=== PATIENT | female | born 1945 | race Caucasian/White ===

== ENCOUNTER 2016-11-15 13:16 | Outpatient (CLI) | payer MEDICARE | END 2016-11-15 13:17 | disposition home or self-care (01) | DX: Z12.31 Encounter for screening mammogram for malignant neoplasm of breast (principal) ==

== ENCOUNTER 2016-11-28 11:37 | Emergency (ER) | payer MEDICARE ==
[2016-11-28] MEDS ORDERED: SODIUM CHLORIDE 0.9% 1,000 ML IV ONE (12:09)
[2016-11-28] MEDS ORDERED: ceFAZolin 2 GM/50 ML 50 ML IV SCH (12:15)
[2016-11-28] MEDS ORDERED: ceFAZolin 2 GM/50 ML 50 ML IV ONE (12:25)
[2016-11-28] MEDS ORDERED: oxyCOD/ACETAMIN 5 MG/325 MG TABLET PO STA (15:33)
[2016-11-28] MEDS ORDERED: DICYCLOMINE 10 MG CAPSULE PO STA (15:33)
[2016-11-28] MEDS ORDERED: DICYCLOMINE 10 MG CAPSULE PO ONE (15:36)
[2016-11-28] MEDS ORDERED: oxyCOD/ACETAMIN 5 MG/325 MG TABLET PO ONE (15:36)
== END 2016-11-28 15:52 | disposition home or self-care (01) ==
DX: R10.31 Right lower quadrant pain (principal); I10 Essential (primary) hypertension; K21.9 Gastro-esophageal reflux disease without esophagitis; J44.9 Chronic obstructive pulmonary disease, unspecified
CPT/HCPCS: 36415; 74176; 80053; 81003; 83690; 85025; 99283; 99284; A9270; J0690

== ENCOUNTER 2017-07-18 09:35 | Outpatient (CLI) | payer MEDICARE ==
--- NOTE | 2017-07-18 10:56 | XRAY Report ---
TWO-VIEW CHEST: 07/18/2017 CLINICAL INDICATION: Fall, pain. FINDINGS: Frontal and lateral views of the chest demonstrate a normal cardiac silhouette. The lungs are clear. No effusion or pneumothorax is present. There is likely a minimally displaced posterior left 8th rib fracture. IMPRESSION: LIKELY MINIMALLY DISPLACED 8TH RIB FRACTURE. NO EVIDENCE OF ACUTE CARDIOPULMONARY DISEA SE. :9 JOB #: [id number] EXT JOB #:[id number]
== END 2017-07-18 09:36 | disposition home or self-care (01) ==
LOC: DI.S 09:35
PROVIDERS: ATTEND Nurse Practitioner Family
DX: R07.81 Pleurodynia (principal)
CPT/HCPCS: 71020

== ENCOUNTER 2018-05-17 13:07 | Outpatient (CLI) | payer MEDICARE ==
[2018-05-17] MEDS ORDERED: ALBUTEROL NEB 2.5 MG/3 ML INH ONE (15:00)
--- NOTE | 2018-05-17 16:45 | XRAY Report ---
Reason: DYSPNEA ON EXERTION, FATIGUE Procedure Date: 05/17/2018 Accession Number: [id number] / [id number] Procedure: XR - Chest 2 View X-Ray CPT Code: 86186 FULL RESULT: EXAM: CHEST RADIOGRAPHY EXAM DATE: 05/17/2018 03:14 PM. CLINICAL HISTORY: Dyspnea on exertion, fatigue. COMPARISON: Chest 2 view PA/lateral 07/18/2017 9:48 AM. TECHNIQUE: 2 views. FINDINGS: Lungs/Pleura: No focal opacities evident. No pleural effusion. No pneumothorax. Normal volumes. Mediastinum: Heart and mediastinal contours are unremarkable. Other: Healed rib fractures of the seventh, eighth and ninth left ribs. Please note that these were not universally well seen on the previous chest radiograph, difficult to detect. IMPRESSION: Interval healing of rib fractures. No acute cardiopulmonary abnormality. RADIA
== END 2018-05-17 13:08 | disposition home or self-care (01) ==
LOC: RT 13:07 → DI 13:08
PROVIDERS: ATTEND Nurse Practitioner Family
DX: R06.00 Dyspnea, unspecified (principal); R53.83 Other fatigue; Z87.81 Personal history of (healed) traumatic fracture
CPT/HCPCS: 71046; 94060

== ENCOUNTER 2019-02-04 13:13 | Outpatient (CLI) | payer MEDICARE ==
--- NOTE | 2019-02-05 15:02 | CT Report ---
Reason: CHRONIC SINUSITIS,UNSPECIFIED Procedure Date: 02/04/2019 Accession Number: [id number] / [id number] Procedure: CT - Sinuses CPT Code: FULL RESULT: EXAM: CT SINUS EXAM DATE: 02/04/2019 01:28 PM. HISTORY: Chronic sinusitis, unspecified. COMPARISONS: None. TECHNIQUE: Routine multi-axial CT imaging performed through the sinuses. Iodinated IV contrast: None. Reconstructions: Multiplanar reformats. In accordance with CT protocol optimization, one or more of the following dose reduction techniques were utilized for this exam: automated exposure control, adjustment of mA and/or KV based on patient size, or use of iterative reconstructive technique. FINDINGS: RIGHT Frontal: Normal. Ethmoid: Minimal mucoperiosteal thickening. Maxillary: Normal. Sphenoid: Normal. Drainage Pathways: The frontal recess, ostiomeatal complex and sphenoethmoidal recess are patent with mild mucoperiosteal thickening along the right ostiomeatal unit with a patent but narrow passage. LEFT Frontal: Normal. Ethmoid: Minimal mucoperiosteal thickening. Maxillary: Normal. Sphenoid: Normal. Drainage Pathways: The frontal recess, ostiomeatal complex and sphenoethmoidal recess are patent and normal. Nasal Cavity: Normal. No mass or significant anatomic abnormality evident. Osseous Structures: Mild demineralization of osseous structures in the nasal cavity and ethmoid cell regions. Orbits: Unremarkable. Other: None. IMPRESSION: Mild chronic changes as described. RADIA
== END 2019-02-04 13:14 | disposition home or self-care (01) ==
LOC: DI 13:13
PROVIDERS: ATTEND Physician Assistant
DX: J32.9 Chronic sinusitis, unspecified (principal)
CPT/HCPCS: 70486

== ENCOUNTER 2019-04-02 12:50 | Outpatient (CLI) | payer MEDICARE ==
[~2019-04-02 12:50] MED LIST: ALBUTEROL NEB 2.5 MG/3 ML INH SCH
== END 2019-04-02 12:51 | disposition home or self-care (01) ==
LOC: RT 12:50
PROVIDERS: ATTEND Student in an Organized Health Care Education/Training Program
DX: J44.9 Chronic obstructive pulmonary disease, unspecified (principal)
CPT/HCPCS: 94010; 94729

== ENCOUNTER 2019-05-07 09:37 | Outpatient (CLI) | payer MEDICARE ==
--- NOTE | 2019-05-08 18:45 | XRAY Report ---
Reason: PAIN OF LEFT SHOULDER, KNEE FOOT Procedure Date: 05/07/2019 Accession Number: [id number] / [id number] Procedure: XRS - Foot 3 View LT CPT Code: FULL RESULT: EXAM: LEFT FOOT RADIOGRAPHY EXAM DATE: 05/07/2019 10:08 AM. CLINICAL HISTORY: Chronic left foot pain, particularly along the medial arch COMPARISON: KNEE 3 VIEW LT 05/07/2019 10:16 AM. TECHNIQUE: 3 views. FINDINGS: Bones: No fractures. Os peroneum present. Joints: Some osteophytes at the first metatarsal phalangeal joint with some mild joint space narrowing and subchondral sclerosis base of the first proximal phalanx. No dislocations. Soft Tissues: Normal. No soft tissue swelling. 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 No fractures. RADIA
--- NOTE | 2019-05-08 19:17 | XRAY Report ---
Reason: PAIN OF LEFT SHOULDER, KNEE FOOT Procedure Date: 05/07/2019 Accession Number: [id number] / [id number] Procedure: XRS - Knee 3 View LT CPT Code: FULL RESULT: EXAM: LEFT KNEE RADIOGRAPHY EXAM DATE: 05/07/2019 10:08 AM. CLINICAL HISTORY: Chronic left knee pain COMPARISON: 12/24/2014 3:13 PM. TECHNIQUE: 3 views. FINDINGS: Bones: Spurring along the lateral compartment, involving the tibial plateau and lateral femoral condyle. Progressed since December 2014. No fractures. Minor spurring of the patella. Joints: Normal. No effusion. No subluxations. Soft Tissues: Normal. No soft tissue swelling. IMPRESSION: Some degenerative joint disease, greatest along the lateral compartment, worse compared to 2014. No acute abnormality. RADIA
--- NOTE | 2019-05-08 19:19 | XRAY Report ---
Reason: PAIN OF LEFT SHOULDER, KNEE FOOT Procedure Date: 05/07/2019 Accession Number: [id number] / [id number] Procedure: XRS - Shoulder 3 View LT CPT Code: FULL RESULT: EXAM: LEFT SHOULDER RADIOGRAPHY EXAM DATE: 05/07/2019 10:08 AM. CLINICAL HISTORY: PAIN OF LEFT SHOULDER, KNEE FOOT. COMPARISON: None. TECHNIQUE: 3 views. FINDINGS: Bones: Normal. No acute fracture or bone lesion. Old left rib fractures. Joints: Acromioclavicular joint is normal. There is mild glenohumeral joint space loss and some bony spurring along the humeral head at the inferior aspect of the articular surface. Soft tissues: Calcifications along the rotator cuff tendons. IMPRESSION: 1. Some calcifications along the rotator cuff tendons with tendinopathy. 2. Mild glenohumeral joint space narrowing. RADIA
== END 2019-05-07 09:38 | disposition home or self-care (01) ==
LOC: DI.S 09:37
PROVIDERS: ATTEND Physician Assistant
DX: M65.812 Other synovitis and tenosynovitis, left shoulder (principal); M19.012 Primary osteoarthritis, left shoulder; M17.12 Unilateral primary osteoarthritis, left knee; M19.072 Primary osteoarthritis, left ankle and foot

== ENCOUNTER 2019-05-16 15:58 | Emergency (ER) | payer MEDICARE ==
[2019-05-16 17:03] LABS: BASOPHILS # (AUTO) 0.1 10^3/uL (0.0-0.1); BASOPHILS % (AUTO) 0.4 %; EOSINOPHILS # (AUTO) 0.2 10^3/uL (0.0-0.7); EOSINOPHILS % (AUTO) 1.7 %; HGB - HEMOGLOBIN 12.7 g/dL (12.0-16.0); LYMPHOCYTES # (AUTO) 1.8 10^3/uL (1.5-3.5); LYMPHOCYTES % (AUTO) 13.6 %; MEAN CORPUSCULAR HEMOGLOBIN 30.3 pg (27.0-31.0); MEAN CORPUSCULAR HGB CONC 32.2 g/dL (32.0-36.0); MONOCYTES # (AUTO) 0.8 10^3/uL (0.0-1.0); MONOCYTES % (AUTO) 6.2 %; NEUTROPHILS # (AUTO) 10.3 10^3/uL (1.5-6.6); NEUTROPHILS % (AUTO) 77.4 %; PLT - PLATELET COUNT 309 10^3/uL (130-450); RED BLOOD COUNT 4.19 10^6/uL (4.20-5.40); RED CELL DISTRIBUTION WIDTH 13.9 % (12.0-15.0); WHITE BLOOD COUNT 13.3 x10^3/uL (4.8-10.8)
--- NOTE | 2019-05-16 17:12 | XRAY Report ---
Reason: SOB Procedure Date: 05/16/2019 Accession Number: [id number] / [id number] Procedure: XR - Chest 1 View X-Ray CPT Code: 74496 FULL RESULT: EXAM: CHEST RADIOGRAPHY EXAM DATE: 05/16/2019 04:35 PM. CLINICAL HISTORY: SOB. COMPARISON: SHOULDER 3 VIEW LT 05/07/2019 10:00 AM CHEST 2 VIEW 05/17/2018 3:14 PM. TECHNIQUE: 1 view. FINDINGS: Lungs/Pleura: No acute or focal airspace disease. Lung volumes are normal. No edema or pneumothorax. Mediastinum: Heart size is normal. There is mild aortic tortuosity. Other: There are old fractures of the posterior left seventh and eighth ribs. IMPRESSION: Negative for an acute cardiopulmonary abnormality RADIA
[2019-05-16 17:16] LABS: ALBUMIN 3.9 g/dL (3.2-5.5); ALBUMIN/GLOBULIN RATIO 1.1 (1.0-2.2); BILIRUBIN,TOTAL 0.6 mg/dL (0.2-1.0); CALCIUM 9.3 mg/dL (8.5-10.3); CREATININE 0.8 mg/dL (0.4-1.0); TOTAL PROTEIN 7.5 g/dL (6.7-8.2)
[2019-05-16 17:45] VITALS: BP 139/77
--- NOTE | 2019-05-16 17:56 | ED Physician Documentation ---
PD HPI CHEST PAIN - Stated complaint Stated Complaint: SOA,HIGH BP - Chief complaint Chief Complaint: Cardiac - History obtained from History obtained from: Patient - History of Present Illness Timing - onset: Today (She went over to pulmonary rehab today for her first visit for her COPD. Her blood pressure was in the range of 180/100 there so they sent her here for further evaluation and treatment. She feels fine, her breathing is not worse than any other day, she has not had any chest pains. She always has mild pedal edema and its not worse than normal.) Review of Systems Constitutional: denies: Fever, Fatigue Cardiac: denies: Chest pain / pressure, Palpitations, Calf pain Respiratory: denies: Cough GI: denies: Abdominal Pain PD PAST MEDICAL HISTORY - Past Medical History Cardiovascular: Hypertension Respiratory: COPD Endocrine/Autoimmune: None GI: GERD : None HEENT: None Psych: None Musculoskeletal: None Derm: Other - Past Surgical History General: Cholecystectomy, Colonoscopy Ortho: Carpal Tunnel surgery /ALARM SERVICE TECHNICIAN: Hysterectomy HEENT: Cataracts - Present Medications Home Medications: Ambulatory Orders Medication Instructions Recorded Confirmed Albuterol [Ventolin Hfa] 2 puffs INH QID 12/27/12 11/28/16 Beclomethasone 80 Mcg [Qvar 80] 2 puffs INH QID 12/27/12 11/28/16 Hydrochlorothiazide 25 mg PO DAILY 12/27/12 11/28/16 Lisinopril [Prinivil] 5 mg PO DAILY 12/27/12 11/28/16 Omeprazole [PriLOSEC] 20 mg PO DAILY 12/27/12 11/28/16 Fluticasone [Flonase] 1 sprays TROY BID 07/09/15 11/28/16 Tiotropium [place] [Spiriva 4 gm IH DAILY 10/01/15 11/28/16 Respimat] Dicyclomine [Bentyl] 10 mg PO Q8H PRN #20 capsule 11/28/16 - Allergies Allergies/Adverse Reactions: Allergies Allergy/AdvReac Type Severity Reaction Status Date / Time Sulfa (Sulfonamide Allergy Itching Verified 05/16/19 16:11 Antibiotics) - Social History Does the pt smoke?: No Smoking Status: Never smoker Does the pt drink ETOH?: No Does the pt have substance abuse?: No PD ED PE NORMAL - Vitals Vital signs reviewed: Yes - General General: Alert and oriented X 3, No acute distress - HEENT HEENT: PERRL, EOMI - Neck Neck: Supple, no meningeal sign, No bony TTP - Cardiac Cardiac: RRR, No murmur - Respiratory Respiratory: No respiratory distress, Clear bilaterally - Abdomen Abdomen: Non tender - Derm Derm: Normal color - Extremities Extremities: Other (Trace bilateral pitting pedal edema) - Neuro Neuro: Alert and oriented X 3, Normal speech Results - Vitals Vitals: Vital Signs - 24 hr 05/16/19 05/16/19 16:11 17:44 Temperature 36.8 C 36.8 C Heart Rate 119 H 103 H Respiratory 20 17 Rate Blood Pressure 144/87 H 139/77 H O2 Saturation 96 99 Oxygen O2 Source Room air - EKG (time done) 1625 Rate: Rate (enter#) (114) Rhythm: Sinus tachycardia [place]: Normal Intervals: Normal ID QRS: Normal Ischemia: Normal ST segments Computer interpretation: Agree with computer - Labs Labs: Laboratory Tests 05/16/19 05/16/19 16:51 16:51 WBC 13.3 H RBC 4.19 L Hgb 12.7 Hct 39.4 MCV 94.0 MCH 30.3 MCHC 32.2 RDW 13.9 Plt Count 309 MPV 10.0 Neut # (Auto) 10.3 H Lymph # (Auto) 1.8 Wise # (Auto) 0.8 Eos # (Auto) 0.2 Baso # (Auto) 0.1 Absolute Nucleated RBC 0.00 Nucleated RBC % 0.0 Sodium 132 L Potassium 3.6 Chloride 92 L Carbon Dioxide 31 Anion Gap 9.0 BUN 20 Creatinine 0.8 Estimated GFR (MDRD) 70 L Glucose 99 Calcium 9.3 Total Bilirubin 0.6 AST 18 ALT 16 Alkaline Phosphatase 58 Total Protein 7.5 Albumin 3.9 Globulin 3.6 Albumin/Globulin Ratio 1.1 Lipase 28 PD MEDICAL DECISION MAKING - ED course ED course: On my evaluation her heart rate is about 103, her blood pressure is 139/77 and she feels fine, we agreed that it was fine to follow-up with her physician for further evaluation and treatment given that she is asymptomatic. Departure - Departure Disposition: 01 Home, Self Care Clinical Impression: Hypertension Qualifiers: Hypertension type: essential hypertension Qualified Code(s): I10 - Essential (primary) hypertension Condition: Good Record reviewed to determine appropriate education?: Yes Instructions: ED HTN Established Comments: Follow-up with Breanna next week for a blood pressure check, return for new or worsening symptoms.
== END 2019-05-16 18:13 | disposition home or self-care (01) ==
LOC: ED 15:58
DX: I10 Essential (primary) hypertension (principal); R00.0 Tachycardia, unspecified; J44.9 Chronic obstructive pulmonary disease, unspecified
CPT/HCPCS: 36415; 71045; 80053; 83690; 85025; 93005; 99283; 99284

== ENCOUNTER 2021-11-26 14:43 | Outpatient (CLI) | payer MEDICARE ==
--- NOTE | 2021-11-26 16:34 | DEXA Report ---
PROCEDURE: Dexa Spine and/or Hip INDICATIONS: POSTMENOPAUSAL TECHNIQUE: Dual energy x-ray absorptiometry (DXA) was performed on a CoAlign System. Regions measur ed are the AP Spine, femoral neck, and if needed forearm. COMPARISON: None. FINDINGS: Lumbar Spine: Bone Mineral Density 1.098 g/cm/cm,T score -0.7, normal Left Hip: Bone Mineral Density 0.891 g/cm/cm,T score -0.9, normal Left Femoral Neck: Bone Mineral Density 0.802 g/cm/cm, T score -1.7, osteopenia (T score greater or equal to -1.0: NORMAL) (T score from -1.1 to -2.4: OSTEOPENIA) (T score less than or equal to -2.5 to: OSTEOPOROSIS) Impression: Bone mineral density at the lower limits of normal in the lumbar spine and left hip, and in the osteo penic range at the left femoral neck. Patients with diagnosis of osteoporosis or osteopenia should have regular bone mineral density assess ment. For those eligible for Medicare, routine testing is allowed once every 2 years. Testing frequ ency can be increased for patients who have rapidly progressing disease or for those who are receivin g medical therapy to restore bone mass. Reviewed by: Wilver Tracey MD on 11/26/2021 4:33 PM PDT Approved by: Wilver Tracey MD on 11/26/2021 4:33 PM PDT Station ID: [id number]
== END 2021-11-26 14:44 | disposition home or self-care (01) ==
LOC: DI 14:43
PROVIDERS: ATTEND Nurse Practitioner Family
DX: M85.88 Other specified disorders of bone density and structure, other site (principal); Z78.0 Asymptomatic menopausal state

== ENCOUNTER 2022-02-10 08:00 | Outpatient (CLI) | payer MEDICARE ==
--- NOTE | 2022-02-11 13:56 | XRAY Report ---
PROCEDURE: Ankle 3 View LT INDICATIONS: LEFT ANKLE PAIN TECHNIQUE: 3 views of the ankle were acquired. COMPARISON: None FINDINGS: Bones: Mildly displaced lateral malleolus fracture of the distal left fibula. Moderate overlying soft tissue swelling. Ankle mortise appears intact. No suspicious bony lesions. Soft tissues: No tibiotalar joint effusion. Achilles tendon appears normal. IMPRESSION: Mildly displaced lateral malleolar fracture. Reviewed by: Daniel Lunsford MD on 02/11/2022 1:55 PM PDT Approved by: Daniel Lunsford MD on 02/11/2022 1:55 PM PDT Station ID: [id number]
== END 2022-02-10 23:59 | disposition home or self-care (01) ==
LOC: DI.S 08:00
PROVIDERS: ATTEND Registered Nurse
DX: S82.62XA Displaced fracture of lateral malleolus of left fibula, initial encounter for closed fracture (principal)

== ENCOUNTER 2022-02-10 15:23 | Outpatient (CLI) | payer MEDICARE | END 2022-02-10 15:24 | disposition EMS.NT | LOC: EMS 15:23 | DX: S99.912A Unspecified injury of left ankle, initial encounter (principal); X50.1XXA Overexertion from prolonged static or awkward postures, initial encounter; Y93.01 Activity, walking, marching and hiking; Y92.480 Sidewalk as the place of occurrence of the external cause ==

== ENCOUNTER 2022-02-16 14:58 | Outpatient (CLI) | payer MEDICARE | END 2022-02-16 14:59 | disposition EMS.NT | LOC: EMS 14:58 | DX: Z53.9 Procedure and treatment not carried out, unspecified reason (principal) ==

== ENCOUNTER 2022-02-25 08:00 | Outpatient (CLI) | payer MEDICARE ==
--- NOTE | 2022-02-25 17:03 | XRAY Report ---
PROCEDURE: Ankle 3 View LT INDICATIONS: ANKLE FX TECHNIQUE: 3 views of the ankle were acquired. COMPARISON: 02/10/2022 FINDINGS: Bones: Nondisplaced lateral malleolus fracture is stable in appearance. Soft tissues: No tibiotalar joint effusion. Achilles tendon appears normal. Soft tissue swelling. IMPRESSION: Stable mildly displaced lateral malleolus fracture. Reviewed by: Yovana Guzman MD, PhD on 02/25/2022 5:02 PM PDT Approved by: Yovana Guzman MD, PhD on 02/25/2022 5:02 PM PDT Station ID: [id number]
== END 2022-02-25 23:59 | disposition home or self-care (01) ==
LOC: DI.WOS 08:00
PROVIDERS: ATTEND Physician Assistant
DX: S82.62XA Displaced fracture of lateral malleolus of left fibula, initial encounter for closed fracture (principal)

== ENCOUNTER 2022-03-15 14:00 | Outpatient (CLI) | payer MEDICARE ==
--- NOTE | 2022-03-15 15:55 | XRAY Report ---
PROCEDURE: Ankle 3 View LT INDICATIONS: ANKLE FX TECHNIQUE: 3 views of the ankle were acquired. COMPARISON: 02/25/2022 FINDINGS: Bones: Mildly displaced Nelson B lateral malleolus fracture shows appropriate interval healing. Soft tissues: No tibiotalar joint effusion. Achilles tendon appears normal. Soft tissue swelling p ersists. IMPRESSION: Nelson B lateral malleolus fracture shows appropriate interval healing. Stable mild displ acement. Reviewed by: Kb Krause MD on 03/15/2022 3:54 PM PDT Approved by: Kb Krause MD on 03/15/2022 3:54 PM PDT Station ID: [id number]
== END 2022-03-15 23:59 | disposition home or self-care (01) ==
LOC: DI.WOS 14:00
PROVIDERS: ATTEND Physician Assistant
DX: S82.62XD Displaced fracture of lateral malleolus of left fibula, subsequent encounter for closed fracture with routine healing (principal)

== ENCOUNTER 2023-06-30 14:12 | Outpatient (CLI) | payer MEDICARE ==
--- NOTE | 2023-07-01 09:03 | XRAY Report ---
PROCEDURE: Knee 3 View BILAT INDICATIONS: PAIN TO BOTH KNEES TECHNIQUE: 3 views of each knee(s) were acquired. COMPARISON: X-ray left knee, . FINDINGS: Right: Gemu valgum. No fractures or dislocations. No suspicious bony lesions. Gemu valgum. Moderate tricompartmental knee joint degeneration. Moderate joint space narrowing with weightbearing in the l ateral femorotibial compartment. Moderate knee joint effusion. No suspicious soft tissue calcificati ons or masses. Left: Gemu valgum. No fractures or dislocations. No suspicious bony lesions. Mild tricompartmental knee joint degeneration. Mild joint space narrowing with weightbearing. Trace knee joint effusion. No suspicious soft tissue calcifications or masses. IMPRESSION: 1. Genu valgum. 2. Degenerative joint disease bilaterally, moderate in right knee and mild in left knee. Reviewed by: Latesha Angel MD on 07/01/2023 9:01 AM PST Approved by: Latesha Angel MD on 07/01/2023 9:01 AM PST Station ID: [id number]
== END 2023-06-30 14:13 | disposition home or self-care (01) ==
LOC: DI.S 14:12
PROVIDERS: ATTEND Nurse Practitioner Family
DX: M17.0 Bilateral primary osteoarthritis of knee (principal); M21.062 Valgus deformity, not elsewhere classified, left knee; M21.061 Valgus deformity, not elsewhere classified, right knee

== ENCOUNTER 2024-02-17 07:00 | Outpatient (CLI) | payer MEDICARE ==
--- NOTE | 2024-02-18 06:58 | XRAY Report ---
PROCEDURE: Hand 3+V LT INDICATIONS: LEFT HAND PAIN TECHNIQUE: 3 views of the hand(s) acquired. COMPARISON: None. FINDINGS: Bones: There is an intra-articular fracture at the base of the proximal first phalanx. Contracture o f the second interphalangeal joints. Interphalangeal joint space narrowing. Soft tissues: No suspicious soft tissue calcifications or masses. IMPRESSION: Intra-articular fracture at the base of the proximal first phalanx. Reviewed by: Brock Cody MD on 02/18/2024 6:57 AM PDT Approved by: Brock Cody MD on 02/18/2024 6:57 AM PDT Station ID: [id number]
--- NOTE | 2024-02-18 06:59 | XRAY Report ---
PROCEDURE: Wrist 3+V LT INDICATIONS: LEFT HAND PAIN TECHNIQUE: 3 views of the wrist were acquired. COMPARISON: None. FINDINGS: Bones: No fractures or dislocations. No suspicious bony lesions. Soft tissues: No suspicious soft tissue calcifications or masses. IMPRESSION: No acute bony abnormality of the wrist. Please see same-day hand series for further discussion. Reviewed by: Brock Cody MD on 02/18/2024 6:58 AM PDT Approved by: Brock Cody MD on 02/18/2024 6:58 AM PDT Station ID: [id number]
== END 2024-02-17 23:59 | disposition home or self-care (01) ==
LOC: DI.S 07:00
PROVIDERS: ATTEND Registered Nurse
DX: S62.512A Displaced fracture of proximal phalanx of left thumb, initial encounter for closed fracture (principal); M25.532 Pain in left wrist

== ENCOUNTER 2024-03-03 11:48 | Outpatient (CLI) | payer MEDICARE ==
--- NOTE | 2024-03-03 21:46 | XRAY Report ---
PROCEDURE: Finger(s) LT INDICATIONS: NONDISPLACED FRACTURE OF PROXIMAL PHALANX OF LEFT TECHNIQUE: AP hand, 3 views of the first finger(s) acquired. COMPARISON: Left hand radiograph dated 02/17/2024. FINDINGS: Bones: Again noted is slightly comminuted intra-articular fracture involving first proximal phalange al base with volar displacement of fractured fragment unchanged from prior study. No new fracture or dislocation. No suspicious bony lesions. Soft tissues: No suspicious soft tissue calcifications or masses. IMPRESSION: Stable appearance of slightly comminuted and displaced intra-articular fracture involving first proxi mal phalangeal base. Reviewed by: Flex Lo MD on 03/03/2024 9:45 PM PDT Approved by: Flex Lo MD on 03/03/2024 9:45 PM PDT Station ID: [id number]
== END 2024-03-03 11:49 | disposition home or self-care (01) ==
LOC: DI 11:48
PROVIDERS: ATTEND Orthopaedic Surgery
DX: S62.512A Displaced fracture of proximal phalanx of left thumb, initial encounter for closed fracture (principal)

== ENCOUNTER 2025-08-05 18:20 | Observation (INO) ==
--- NOTE | 2025-08-05 18:33 | ED Physician Documentation ---
History of Present Illness Stated complaint Stated Complaint: GLF L Wrist Chief complaint Chief Complaint: General History obtained from History obtained from: Patient History of Present Illness Timing: Prior to arrival Additonal information Additional information: Patient is a 79-year-old female presenting to the emergency department after a fall yesterday. She was on the ground and unable to get up. She was having persistent pain to her left wrist it was not until one of her neighbors came to check on her today when she was able to be assisted up. She attempted to go to the walk-in clinic but became very lightheaded.Patient was on the ground for approximately 16 hours Meds/Allgy Home Medications Ambulatory Orders Medication Instructions Recorded Confirmed albuterol sulfate 90 mcg/actuation 2 puff inhalation Q ID 12/27/12 08/05/25 aerosol inhaler (Ventolin HFA) hydrochlorothiazide 25 mg tablet 25 mg PO DAILY 08/05/25 lisinopril 5 mg tablet (Prinivil) 5 mg PO DAILY 08/05/25 omeprazole 20 mg capsule,delayed 20 mg PO DAILY 08/05/25 release tiotropium bromide 2.5 4 g IH DAILY 10/01/15 mcg/actuation mist for inhalation (Spiriva Respimat) Allergies Allergies Allergy/AdvReac Type Severity Reaction Status Date / Time Sulfa (Sulfonamide Allergy Itching Verified 08/05/25 18:27 Antibiotics) PFSH Active Problems All Active Problems (Updated 08/05/25 @ 22:17 by Lidia Naranjo PA-C) Pain and swelling of left wrist (Acute) Closed left radial fracture (Acute) Hyponatremia (Acute) Dehydration (Acute) Urinary tract infection (Acute) Fall (Acute) Rib pain (Acute) Skin tear (Acute) Elevated blood pressure reading (Acute) Hypertension (Acute) Abdominal pain (Acute) Medical History Medical History (Updated 08/05/25 @ 22:17 by Lidia Naranjo PA-C) Wrist injury GERD (gastroesophageal reflux disease) COPD (chronic obstructive pulmonary disease) Surgical History Surgical History (Updated 08/05/25 @ 19:22 by Isidro Clemons RN) Hx of cholecystectomy Social History Social History (Updated 08/05/25 @ 19:25 by Isidro Clemons RN) Smoking Status: Former smoker If you are a former smoker, when did you quit? (Date/Year): 20 years ago How many cigarettes a day do you smoke? (20 cigarettes=1 Pk): 20 Do you dip or chew tobacco?: No Living arrangement: At home Marital Status: Single Living Condition: Alone Support Person: Yes Relationship Notes: 2 sister live close to her; lives in an area where there are people around Has a Durable Power of Meter Readers Supervisor for Health Care?: No Has Health Care Directive?: No Home Mobility Equipment: Cane Physical - Functional Details: COPD limits mobility to 15 steps before stopping to rest Do you feel safe in your home environment?: Yes History of physical, verbal, emotional, or financial abuse?: No ETOH Use: Wine Frequency: Weekly Number of days/week: 2 Retired: Yes Optional: worked in the [employer] industry x 30 years Are you following a diet prescribed by a doctor: No Are you following a special diet: No Exam Exam Vital Signs: Vital Signs x48h Temp Pulse Resp BP Pulse Ox 08/05/25 18:27 36.8 C 101 H 18 170/96 H 97 Constitutional normal general appearance HENMT normocephalic, head/scalp atraumatic and hearing grossly normal bilaterally Eyes PERRL, EOMs intact bilaterally and conjunctivae normal Neck/C-Spine visual inspection normal Lymph no lymphadenopathy noted Chest inspection of chest normal No reproducible chest pain Respiratory breath sounds equal bilaterally and normal respiratory effort Cardiovascular normal heart rate noted, regular rhythm noted and no gallop Gastrointestinal abdomen nontender, no abnormal bruising, no pelvic instability Back/Pelvis No reproducible lumbar or thoracic tenderness. Extremities Obvious deformity to the left wrist with obvious bruising and swellinga nd signficant tenderness to light tough, with, abduction of left wrist and decreased flexion on exam. Trigger finger with flexion to left index finger on examination. Radial pulse 2+ baseline tremor in place, left thumb with obvious deformity capillary refill intact sensation intact. Skin skin color normal Ecchymosis noted to bilateral lower legs but no significant pain on palpation or obvious deformity flexion extension intact patient has good strength of bilateral lower legs Results Vitals Vitals: Vital Signs - 24 hr 08/05/25 18:27 08/05/25 19:56 08/05/25 19:56 Temperature 36.8 C Temperature Source Temporal Artery Scan Pulse Rate 101 H Respiratory Rate 18 Blood Pressure 170/96 H O2 Saturation 97 O2 Source Room air Pain Intensity 6 6 6 Oxygen O2 Source Room air Labs Labs: Laboratory Tests 08/05/25 08/05/25 18:45 20:03 WBC 14.2 H RBC 4.01 L Hgb 14.2 Hct 41.5 MCV 103.5 H MCH 35.4 H MCHC 34.2 RDW 15.9 H Plt Count 287 MPV 9.7 Neut # (Auto) 12.5 H Lymph # (Auto) 0.8 L [place] # (Auto) 0.7 Eos # (Auto) 0.0 Baso # (Auto) 0.0 Absolute Nucleated RBC 0.00 Nucleated RBC % 0.0 Sodium 130 L Potassium 4.1 Chloride 89 L Carbon Dioxide 25 Anion Gap 16.0 H BUN 17 Creatinine 0.8 Estimated GFR (MDRD) 69 L Glucose 79 Calcium 9.7 Total Bilirubin 0.7 AST 31 ALT 14 Alkaline Phosphatase 77 Total Creatine Kinase 419 H Total Protein 7.4 Albumin 4.5 Globulin 2.9 Albumin/Globulin Ratio 1.6 Lipase < 10 L Urine Color Yellow Urine Clarity Clear Urine pH 5.0 Ur Specific [place] >=1.030 H Urine Protein Negative Urine Glucose (UA) Negative Urine Ketones 80 Urine Occult Blood Negative Urine Nitrite Negative Urine Bilirubin Small Urine Urobilinogen 0.2 (NORMAL) Ur Leukocyte Esterase Trace Urine RBC None Seen Urine WBC 0-3 Ur Epithelial Cells RARE Renal Tubular Ur Squamous Epith Cells FEW Squamous Urine Bacteria Few Ur Microscopic Review INDICATED Urine Culture Comments INDICATED Nasal Adenovirus (PCR) NOT DETECTED Nasal B. parapertussis DNA (PCR) NOT DETECTED Nasal Coronavir 229E PCR NOT DETECTED Nasal Coronavir HKU1 PCR NOT DETECTED Nasal Coronavir NL63 PCR NOT DETECTED Nasal Coronavir OC43 PCR NOT DETECTED Nasal Enterovir/Rhinovir PCR NOT DETECTED Nasal Influenza B PCR NOT DETECTED Nasal Influenza A PCR NOT DETECTED Nasal Parainfluen 1 PCR NOT DETECTED Nasal Parainfluen 2 PCR NOT DETECTED Nasal Parainfluen 3 PCR NOT DETECTED Nasal Parainfluen 4 PCR NOT DETECTED Nasal RSV (PCR) NOT DETECTED Nasal B.pertussis DNA PCR NOT DETECTED Nasal C.pneumoniae (PCR) NOT DETECTED Gilbert Human Metapneumo PCR NOT DETECTED Nasal M.pneumoniae (PCR) NOT DETECTED Nasal SARS-CoV-2 (PCR) NOT DETECTED PD Medical Decision Making ED course Complexity details: reviewed old records and reviewed results ED course: Patient is a 79 yo female presenting to the ED presenting to the emergency department with fall at home that occurred yesterday after she tripped over her cat. She is unsure if she hit her head but she was calling around for 16 hours last night unable to get up. Her neighbor checked on her this evening and tried to bring her to the walk-in clinic but she was unable to get in as she was having trouble breathing when walking. She was then brought in via EMS. She is not on any blood thinners she has significant pain to her left hand. Patient reports she is right-handed. No numbness tingling she has obvious deformity to left wrist on examination with trigger finger to second index finger and obvious deformity to left thumb. X-ray humerus: No acute bony abnormality. X-ray wrist: Distal radius fracture. CT cervical spine: 1. Reversal of cervical lordosis. 2. No acute fracture. CT chest: No acute cardiopulmonary process. Mild to moderate coronary artery calcifications. CT head: 1. No acute traumatic findings. 2. 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 X-ray hand: Acute left distal radius fracture Given radial fracture but obvious deformity of left thumb with significant an gulation of the left wrist will obtain CT wrist and finger. I reached out to orthopedics Dr. eDnt to update him but patient will be admitted for concerns of leukocytosis with recent fall and positive UTI. Patient was given fluids for an anion gap of 16 most likely secondary to dehydration had a CK of 419 which most likely secondary to being on the floor all at night. Patient respiratory swab i s negative. She was given a dose of ceftriaxone prophylactically here in the ED. Patient pending CT left upper extremity after bedside placement of sugar- tong with left thumb splint. THis was performed with the assistance of Dr. Fischer in the room. Patient admitted under hospitalist SHILA Martines and for monitoring and evaluation by orthopedics surgery tomorrow. Patient will be admitted I did reach out to Dr. Aguayo on-call orthopedics who plans to see her on . Currently pending upper extremity CT scan. Patient was admitted to the hospitalist overnight. Discharge Plan Discharge Patient Disposition: 66 [facility] DC/Xfer Condition: Stable Clinical Impression: Dehydration, Hyponatremia, Hypertension, Closed left radial fracture, Pain and swelling of left wrist Interventions: ED Admission Assessment Last Done: 08/05/25 21:26 Vitals documented within 30 minutes of discharge?: Yes
[2025-08-05 18:58] LABS: HCT - HEMATOCRIT 41.5 % (37.0-47.0); HGB - HEMOGLOBIN 14.2 g/dL (12.0-16.0); MEAN PLATELET VOLUME 9.7 fL (7.9-10.8); NRBC ABSOLUTE COUNT (AUTO) 0.00 x10^3/uL; NUCLEATED RED BLOOD CELLS AUTO 0.0 /100WBC; PLT - PLATELET COUNT 287 10^3/uL (130-450); RED CELL DISTRIBUTION WIDTH 15.9 % (12.0-15.0)
[2025-08-05 19:09] LABS: CK- CREATINE KINASE 419 IU/L (30-223)
[2025-08-05 19:13] LABS: ALT ALANINE AMINOTRANSFERASE 14 IU/L (10-60); AST ASPARTATE AMINOTRANSFERASE 31 IU/L (10-42); BUN - BLOOD UREA NITROGEN 17 mg/dL (6-20); CARBON DIOXIDE - CO2 25 mmol/L (21-32); CREATININE 0.8 mg/dL (0.6-1.3); GFR - MDRD 69 (>89)
--- NOTE | 2025-08-05 19:32 | CT Report ---
PROCEDURE: CT Head WO INDICATIONS: head injury after fall TECHNIQUE: CT of the head was performed, without intravenous contrast. Reformats: Coronal and sagittal. For radiation dose reduction, the following was used: automated exposure control, adjustment of mA and/or kV according to patient size. COMPARISON: None. FINDINGS: Image quality: Diagnostic. CSF spaces: Basal cisterns are patent. No extra-axial fluid collections. Ex vacuo dilation of the right ventricle.. Brain: No midline shift. No intracranial mass effect or hemorrhage. Large region of chronic encephalomalacia in the right parietal and occipital lobe and in the inferior temporal lobe along the ventricle. No acute culver matter ischemic change. Skull and face: Calvarium and visualized facial bones are intact, without suspicious lesions. Sinuses: Visualized sinuses and mastoids are clear. IMPRESSION: 1. No acute traumatic findings. 2. 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 Reviewed by: Jonel De Dios MD on 08/05/2025 7:29 PM PST Approved by: Jonel De Dios MD on 08/05/2025 7:29 PM PST Station ID: [email or web address]
--- NOTE | 2025-08-05 19:34 | CT Report ---
PROCEDURE: CT Cervical Spine WO INDICATIONS: neck pain TECHNIQUE: Noncontrast images acquired from the skull base to the T4 level. Sagittal and coronal reformats were then constructed. For radiation dose reduction, the following was used: automated exposure control, adjustment of mA and/or kV according to patient size. COMPARISON: None. FINDINGS: Image quality: Excellent. Bones: No fractures or dislocations. Visualized superior ribs are intact. Reversal of cervical lordosis. Severe multilevel degenerative disc disease and facet arthropathy. Soft tissues: Prevertebral soft tissues are normal in thickness. No paravertebral hematomas. No apical pneumothoraxes. IMPRESSION: 1. Reversal of cervical lordosis. 2. No acute fracture. Reviewed by: Jonel De Dios MD on 08/05/2025 7:31 PM [facility] Approved by: Jonel De Dios MD on 08/05/2025 7:31 PM PST Station ID: [email or web address]
--- NOTE | 2025-08-05 19:35 | CT Report ---
PROCEDURE: CT Chest WO INDICATIONS: sob TECHNIQUE: A CT scan of the chest was performed. Intravenous contrast media was not administered. Images were recorded and evaluated at appropriate window settings. Reformats: axial MIP of the chest, coronal and sagittal. For radiation dose reduction, the following was used: automated exposure control, adjustment of mA and/or kV according to patient size. COMPARISON: None. FINDINGS: Image quality: Diagnostic. Chest wall and lower neck: No thyroid nodule which requires sonographic follow up. No axillary or supraclavicular adenopathy by size. Lungs and pleura: No consolidation. No pleural effusions. No pneumothorax. Scattered pulmonary micronodules. No suspicious pulmonary nodules which require follow up. Mild emphysematous changes. Biapical pleural-parenchymal thickening/scarring. Mediastinum: Heart size is normal. No pericardial effusion. No large vessel abnormality. No mediastinal adenopathy by size criteria. Mild to moderate coronary artery calcifications. Bones: No aggressive osseous abnormality. Upper Abdomen: Unremarkable. IMPRESSION: No acute cardiopulmonary process. Mild to moderate coronary artery calcifications. Reviewed by: Karin Caban MD, PhD on 08/05/2025 7:32 PM PST Approved by: Karin Caban MD, PhD on 08/05/2025 7:32 PM PST Station ID: [id number]
--- NOTE | 2025-08-05 19:37 | XRAY Report ---
PROCEDURE: XR Humerus LT INDICATIONS: left arm pain TECHNIQUE: 2 views of the humerus were acquired. COMPARISON: Left shoulder radiographs 11/14/2024 FINDINGS: Bones: No fractures or dislocations. No suspicious bony lesions. Severe glenohumeral and moderate acromioclavicular degenerative changes with joint space narrowing subchondral Soft tissues: No suspicious soft tissue calcifications or masses. IMPRESSION: No acute bony abnormality. Reviewed by: Karin Caban MD, PhD on 08/05/2025 7:34 PM PST Approved by: Karin Caban MD, PhD on 08/05/2025 7:34 PM PST Station ID: [id number]
--- NOTE | 2025-08-05 19:37 | XRAY Report ---
PROCEDURE: XR Wrist 3+V LT INDICATIONS: left wrist pain/deformity TECHNIQUE: 4 views of the wrist were acquired. COMPARISON: None. FINDINGS: Acute comminuted angulated fracture of the left distal radius metaphysis. No dislocation. This may be in the setting of chronic contractures as the fingers are abnormal in position. IMPRESSION: Distal radius fracture. Reviewed by: Jonel De Dios MD on 08/05/2025 7:34 PM PST Approved by: Jonel De Dios MD on 08/05/2025 7:34 PM PST Station ID: [email or web address]
--- NOTE | 2025-08-05 19:38 | XRAY Report ---
PROCEDURE: XR Hand 3+V LT INDICATIONS: left hand abnormality TECHNIQUE: 3 views acquired of left hand COMPARISON: None FINDINGS: Acute angulated fracture at the distal metaphysis of the radius. Chronic healed fractures of the first second and third metatarsals. Flexion of the index finger. Diffuse osseous demineralization. No dislocation. Chronic deformity of the thumb proximal phalanx. IMPRESSION: Acute left distal radius fracture Reviewed by: Jonel De Dios MD on 08/05/2025 7:35 PM PST Approved by: Jonel De Dios MD on 08/05/2025 7:35 PM PST Station ID: [email or web address]
[2025-08-05] MEDS: HYDROmorphone 0.5 MG/0.5 ML SYRINGE IVP STA ×2 (19:56)
[2025-08-05] MEDS: SODIUM CHLORIDE 0.9% 1,000 ML IV STA (19:57)
[2025-08-05 20:19] LABS: GLUCOSE, URINE (UA) Negative (NEGATIVE); KETONES,URINE (UA) 80 mg/dL (NEGATIVE); OCCULT BLOOD,URINE Negative (NEGATIVE)
[2025-08-05 20:28] LABS: EPITHELIAL CELLS,UR RARE Renal Tubular /HPF (<= Few); SQUAMOUS EPITHELIAL CELL,UR FEW Squamous (<= Few)
[2025-08-05] MEDS ORDERED: ONDANSETRON 4 MG/2 ML VIAL IVP PRN (20:41)
--- NOTE | 2025-08-05 20:50 | HISTORY & PHYSICAL EXAMINATION ---
Chief Complaint Chief Complaint Chief Complaint: History of Present Illness Admitted From Admitted From:: home History Obtained From Records Reviewed: [facility] note a year ago History obtained from: patient History of Present Illness HPI Comment/Other: 78-year-old female with past medical history of hypertension, GERD, COPD presents to the emergency department this evening after a ground-level fall at home yesterday evening. The last time she had anything to eat or drink was dinner last night around 1700. She states she walked into the kitchen and tripped over her cat who was laying on the floor she fell and then was unable to get up. She has a friend who checks on her every day and that person came to check on her after work and found her on the floor. Obviously she lives alone. When she stood up she became very lightheaded. She has not had anything to eat or drink in over 24 hours. Prior to the fall no dysuria, cough, fever, n/v/d. She was in her usual state of health. This was a mechanical fall. She denies striking her head. She denies being on blood thinning medications. She had no associated syncope. Her sister Diane is her medical decision maker, should she need one. She has no POLST, DPOA, etc. She has lived alone for many years. She had a son who she cared for with MS, he eventually went into a care facility and there. She wishes to be DNR/DNI. I reviewed with her the purpose of a POLST and why it is important, and she is agreeable to completing one this admission. Meds/Allgy Home Medications Ambulatory Orders Medication Instructions Recorded Confirmed albuterol sulfate 90 mcg/actuation 2 puff inhalation Q ID 12/27/12 08/05/25 aerosol inhaler (Ventolin HFA) hydrochlorothiazide 25 mg tablet 25 mg PO DAILY 08/05/25 lisinopril 5 mg tablet (Prinivil) 5 mg PO DAILY 08/05/25 omeprazole 20 mg capsule,delayed 20 mg PO DAILY 08/05/25 release tiotropium bromide 2.5 4 g IH DAILY 10/01/15 mcg/actuation mist for inhalation (Spiriva Respimat) Allergies Allergies Allergy/AdvReac Type Severity Reaction Status Date / Time Sulfa (Sulfonamide Allergy Itching Verified 08/05/25 18:27 Antibiotics) PFSH Active Problems All Active Problems (Updated 08/05/25 @ 22:02 by SHILA Ivey) Hyponatremia (Acute) Dehydration (Acute) Urinary tract infection (Acute) Fall (Acute) Rib pain (Acute) Skin tear (Acute) Elevated blood pressure reading (Acute) Hypertension (Acute) Abdominal pain (Acute) Medical History Medical History (Updated 08/05/25 @ 22:02 by SHILA Ivey) Wrist injury GERD (gastroesophageal reflux disease) COPD (chronic obstructive pulmonary disease) Surgical History Surgical History (Updated 08/05/25 @ 19:22 by Isidro Clemons RN) Hx of cholecystectomy Social History Social History (Updated 08/05/25 @ 19:25 by Isidro Clemons RN) Smoking Status: Former smoker If you are a former smoker, when did you quit? (Date/Year): 20 years ago How many cigarettes a day do you smoke? (20 cigarettes=1 Pk): 20 Do you dip or chew tobacco?: No Living arrangement: At home Marital Status: Single Living Condition: Alone Support Person: Yes Relationship Notes: 2 sister live close to her; lives in an area where there are people around Has a Durable Power of Banquet Lead for Health Care?: No Has Health Care Directive?: No Home Mobility Equipment: Cane Physical - Functional Details: COPD limits mobility to 15 steps before stopping to rest Do you feel safe in your home environment?: Yes History of physical, verbal, emotional, or financial abuse?: No ETOH Use: Wine Frequency: Weekly Number of days/week: 2 Retired: Yes Optional: worked in the [employer] industry x 30 years Are you following a diet prescribed by a doctor: No Are you following a special diet: No POLST Patient has POLST: No POLST on file?: No Review of Systems Status of ROS: 10 or more systems reviewed and unremarkable except as noted in history and below Prior Level of Functionality: Does not drive. She has her groceries delivered. She quit driving about 6 months ago she says this was due to age. Exam Exam Vital Signs: Vital Signs x48h Temp Pulse Resp BP Pulse Ox 08/05/25 20:43 86 18 163/96 H 97 08/05/25 18:27 36.8 C 101 H 18 170/96 H 97 Constitutional normal general appearance and no apparent distress HENMT normocephalic, head/scalp atraumatic, hearing grossly normal bilaterally, nasal mucous membranes normal, oral mucous membranes abnormal (dry) and dentition normal (For age) Eyes EOMs intact bilaterally and conjunctivae normal Neck/C-Spine visual inspection normal and trachea midline Lymph no lymphadenopathy noted Respiratory breath sounds equal bilaterally, normal respiratory effort, clear to auscultation bilaterally, no wheezes, no rales and no use of accessory muscles Cardiovascular normal heart rate noted Gastrointestinal abdomen normal to inspection, abdomen soft to palpation and nontender to palpation Genitourinary bladder normal to palpation Extremities deformity at left wrist. Also a deformity at the left proximal phalanx of the thumb. ecchymosis at the left wrist and thumb. Neurology boiling house oiler II-XII intact, no movement abnormality noted, speech normal and GCS 15 Psychiatry mental status grossly normal, oriented x3, thought process normal and memory normal Skin skin color normal Conclusion/Plan Problem List (1) Dehydration: Plan: She comes into the hospital with elevated CPK, having been on the floor for 16 hours, without food or water. her urine had ketones. She is not tachycardic. She got one liter of fluids in the ED. Discussed with Lidia Naranjo in the ED. She will call Dr Yao of [facility] for advice regarding left upper extremity fractures. I am admitting this patient to observation status for treatment of her UTI with leukocytosis, dehydration and fractured LUE. She lives alone and is not safe to dc home after being on the floor all night. I am keeping her on maintenance fluids, and will plan to send her home in the AM with close PCP followup and outpatient treatment of her left upper extremity fracture. (2) Urinary tract infection: Plan: She has a leukocytosis of 14,000. Her UA is significant for trace leukocyte esterase and a few bacteria. Culture was sent and is pending. I have given her 1 dose of Rocephin, 1 g IV in the emergency department and started Rocephin daily. I will await further culture data on her urinalysis. She has not been having any symptoms at home. She has not been running any fevers. She does not have any flank pain. (3) Wrist injury: Plan: This patient has obvious deformity of her left thumb at the IP joint. I manipulated it at the bedside with Dr. Fischer in the emergency department and I feel that clinically she has a left proximal phalanx fracture. She was placed in a thumb spica splint in the ED. This was in combination with a volar element to support her left distal radius and ulnar styloid fractures. CT left wrist and hand:Significant patient motion artifact severely degrades the exam. 2. Likely mildly comminuted distal radial metaphysis fracture with mild impaction and volar angulation and displacement compatible with a Guillen fracture. Additional likely nondisplaced ulnar styloid tip fracture and dislocation of the ulna from the carpal bones. The emergency department providers have spoken with Dr. Yao of orthopedics and requested further consultation on this hand and wrist fracture. I have ordered pain control for her overnight. (4) Hyponatremia: Plan: Na 130. likely is secondary to hypovolemic hyponatremia, and will resolve overnight w treatment of her dehydration. (5) COPD (chronic obstructive pulmonary disease): Plan: chronic and stable. No wheezing on exam this evening. She is not hypoxic she is satting normally on room air. I have ordered albuterol nebs as needed we will replace her Spiriva inhaler with ipratropium. (6) GERD (gastroesophageal reflux disease): Plan: Chronic and stable, resume home PPI Plan I have spent 80 minutes in the care of this patient today. This includes time [id number], review and ordering of diagnostic imaging and laboratory studies and consultation with other providers. Monitoring the patient's signs symptoms, evaluation of medication effectiveness and patient's response to treatment. Lab Results Lab results reviewed: Yes 08/05/25 18:45 08/05/25 18:45 Diagnostic Imaging Results Diagnostic Imaging Results: positive Final report reviewed Core Measures DVT/VTE - Prophylaxis VTE/DVT Device ordered at admit?: Yes VTE/DVT Prophylaxis med ordered at admit?: Yes
[2025-08-05 21:03] LABS: B. PARAPERTUSSIS- RESP PCR PAN NOT DETECTED; B. PERTUSSIS- RESP PCR PANEL NOT DETECTED; C. PNEUMONIAE- RESP PCR PANEL NOT DETECTED; CORONAVIRUS 229E-RESP PCR NOT DETECTED; CORONAVIRUS HKU1-RESP PCR NOT DETECTED; CORONAVIRUS NL63-RESP PCR NOT DETECTED; CORONAVIRUS OC43-RESP PCR NOT DETECTED; HUMAN METAPNEUMOVIRUS NOT DETECTED; INFLUENZA A- RESP PCR PANEL NOT DETECTED; INFLUENZA B - RESP PCR PANEL NOT DETECTED; M. PNEUMONIAE- RESP PCR PANEL NOT DETECTED; PARAINFLUENZA VIRUS 1 NOT DETECTED; PARAINFLUENZA VIRUS 2 NOT DETECTED; PARAINFLUENZA VIRUS 4 NOT DETECTED; RHINOVIRUS/ENTEROVIRUS NOT DETECTED; RSV- RESP PCR PANEL NOT DETECTED; SARS-CoV-2 -RESP PCR PANEL NOT DETECTED
[2025-08-05] MEDS: cefTRIAXone 1 GM VIAL IVP STA (21:34)
[2025-08-05] MEDS: SODIUM CHLORIDE 0.9% 1,000 ML IV SCH (21:40)
--- NOTE | 2025-08-05 21:44 | CT Report ---
PROCEDURE: CT Upper Extremity LT WO INDICATIONS: left wrist pain TECHNIQUE: CT scan of the left wrist and forearm was performed without contrast. Coronal and sagittal reformats were constructed. For radiation dose reduction, the following was used: automated exposure control, adjustment of mA and/or kV according to patient size. COMPARISON: Left hand radiographs dated earlier same date 08/05/2025. FINDINGS: Image quality: Significant patient motion artifact severely degrades the exam. Bones: Likely mildly comminuted distal radial metaphysis fracture with mild impaction and volar angulation and approximately 8 mm of displacement of the distal fragment. Likely additional nondisplaced ulnar styloid tip fracture with dislocation of the ulna from the carpal bones. The distal radius fragment appears aligned with the carpal bones. Soft tissues: Soft tissue swelling about the wrist. Impression: 1. Significant patient motion artifact severely degrades the exam. 2. Likely mildly comminuted distal radial metaphysis fracture with mild impaction and volar angulation and displacement compatible with a Guillen fracture. Additional likely nondisplaced ulnar styloid tip fracture and dislocation of the ulna from the carpal bones. Reviewed by: Hunter Yusuf MD on 08/05/2025 9:41 PM PST Approved by: Hunter Yusuf MD on 08/05/2025 9:41 PM PST Station ID: [email or web address]
[2025-08-06] MEDS: oxyCODONE 5 MG TABLET PO PRN
[2025-08-06] MEDS: ACETAMINOPHEN 325 MG TABLET PO PRN
[2025-08-06] MEDS: SODIUM CHLORIDE FLUSH 0.9% 10 ML SYRINGE IVP SCH (00:01)
[2025-08-06] MEDS: IPRATROPIUM 0.2 MG/ML NEB INH SCH ×2 (00:30→11:17)
[2025-08-06 05:27] LABS: HCT - HEMATOCRIT 35.2 % (37.0-47.0); HGB - HEMOGLOBIN 12.0 g/dL (12.0-16.0); MEAN PLATELET VOLUME 10.1 fL (7.9-10.8); NRBC ABSOLUTE COUNT (AUTO) 0.00 x10^3/uL; NUCLEATED RED BLOOD CELLS AUTO 0.0 /100WBC; PLT - PLATELET COUNT 225 10^3/uL (130-450); RED CELL DISTRIBUTION WIDTH 16.4 % (12.0-15.0)
[2025-08-06] MEDS: SODIUM CHLORIDE FLUSH 0.9% 10 ML SYRINGE IVP PRN (05:27)
[2025-08-06] MEDS: HYDROmorphone 0.5 MG/0.5 ML SYRINGE IVP PRN (05:27)
[2025-08-06 05:49] LABS: BUN - BLOOD UREA NITROGEN 20.0 mg/dL (6-20); CARBON DIOXIDE - CO2 21.0 mmol/L (21-32); CK- CREATINE KINASE 222.0 IU/L (30-223); CREATININE 0.8 mg/dL (0.6-1.3); GFR - MDRD 69.0 (>89)
[2025-08-06] MEDS ORDERED: IPRATROPIUM 0.2 MG/ML NEB INH SCH (07:00)
[2025-08-06] MEDS: cefTRIAXone 1 GM in SODIUM CHLORIDE 0.9% MINIBAG 100 ML IV SCH (08:23)
[2025-08-06] MEDS: ENOXAPARIN 40 MG/0.4 ML SYRINGE SUBQ SCH (08:24)
[2025-08-06] MEDS: PANTOPRAZOLE 40 MG TABLET PO SCH (08:24)
[2025-08-06] MEDS: ALBUTEROL NEB 2.5 MG/3 ML INH PRN (11:19)
[2025-08-06] MEDS: LACTATED RINGERS 1,000 ML IV ONE (11:36)
[2025-08-06] MEDS ORDERED: FOSFOMYCIN TROMETHAMINE 3 GM PACKET PO ONE (13:29)
--- NOTE | 2025-08-06 13:46 | Discharge Summary ---
Discharge Summary Admit Date: 08/05/25 Discharge Date: 08/06/25 Discharging Provider: Cong Huang Primary Care Provider: Ligia Damico Code Status: Do Not Attempt Resuscitation DIAGNOSES Discharge Diagnoses with Status of Each Condition: Dehydrationresolved UTIurine culture in progress, suspect this is asymptomatic bacteriuria Wrist injurysplinted, follow-up with Ortho Hyponatremiasodium greater than 130 today COPD without exacerbationchronic GERDchronic HPI History of Present Illness: 78-year-old female with past medical history of hypertension, GERD, COPD presents to the emergency department this evening after a ground-level fall at home yesterday evening. The last time she had anything to eat or drink was dinner last night around 1700. She states she walked into the kitchen and tripped over her cat who was laying on the floor she fell and then was unable to get up. She has a friend who checks on her every day and that person came to check on her after work and found her on the floor. Obviously she lives alone. When she stood up she became very lightheaded. She has not had anything to eat or drink in over 24 hours. Prior to the fall no dysuria, cough, fever, n/v/d. She was in her usual state of health. This was a mechanical fall. She denies striking her head. She denies being on blood thinning medications. She had no associated syncope. HOSPITAL COURSE Hospital Course: Patient was observed overnight and given aggressive IV fluid resuscitation. Her vital signs are stable this morning, and she is alert and conversant. I discussed her case with on-call orthopedics, who recommended wrist splinting and outpatient follow-up. I prescribed her a short course of oxycodone and encouraged [id number] Tylenol. She is being discharged home, she reports [place] I assisted her in filling out POLST form. I suggested that she establish a DPOA ALLERGIES Allergies Allergy/AdvReac Type Severity Reaction Status Date / Time Sulfa (Sulfonamide Allergy Itching Verified 08/05/25 18:27 Antibiotics) MEDICATIONS Ambulatory Orders Medication Instructions Recorded Confirmed albuterol sulfate 90 mcg/actuation 2 puff inhalation Q ID 12/27/12 08/05/25 aerosol inhaler (Ventolin HFA) hydrochlorothiazide 25 mg tablet 25 mg PO DAILY 08/05/25 lisinopril 5 mg tablet (Prinivil) 5 mg PO DAILY 08/05/25 omeprazole 20 mg capsule,delayed 20 mg PO DAILY 08/05/25 release tiotropium bromide 2.5 4 g IH DAILY 10/01/15 mcg/actuation mist for inhalation (Spiriva Respimat) oxycodone 5 mg tablet 5 mg PO Q4HR PRN Pain 5 to 7 #20 08/06/25 tabs PHYSICAL EXAM AT DISCHARGE Vital Signs: Vital Signs x48h Temp Pulse Pulse Resp BP Pulse Ox 08/06/25 12:00 97.9 F 92 18 132/92 H 94 08/06/25 11:20 95 20 08/06/25 10:27 169/99 H 08/06/25 08:00 97.9 F 120 H 18 96 08/06/25 07:37 80 20 Physical Exam Other/Comments: Constitutional normal general appearance and no apparent distress HENMT normocephalic, head/scalp atraumatic, hearing grossly normal bilaterally, nasal mucous membranes normal, Eyes EOMs intact bilaterally and conjunctivae normal Neck/C-Spine visual inspection normal and trachea midline Lymph no lymphadenopathy noted Respiratory breath sounds equal bilaterally, normal respiratory effort, clear to auscultation bilaterally, no wheezes, no rales and no use of accessory muscles Cardiovascular normal heart rate noted Gastrointestinal abdomen normal to inspection, abdomen soft to palpation and nontender to palpation Genitourinary bladder normal to palpation Extremities Left wrist in splint Neurology executive assistant II-XII intact, no movement abnormality noted, speech normal and GCS 15 Psychiatry mental status grossly normal, oriented x3, thought process normal and memory normal Skin skin color normal LABS 08/06/25 05:00 08/06/25 05:00 FOLLOW UP Follow Up: With PCP, orthopedics. Recommend establishing DPOA TIME SPENT Time Spent in Discharge (Minutes): 38 Discharge Plan Discharge Patient Disposition: Home, Self Care Condition: Stable Prescriptions: New oxycodone 5 mg Tablet 5 mg PO Q4HR PRN (Reason: Pain 5 to 7) Qty: 20 0RF Continued lisinopril [Prinivil] 5 MG tablet 5 mg PO DAILY hydrochlorothiazide 25 MG tablet 25 mg PO DAILY omeprazole 20 MG capsule,delayed release(DR/EC) 20 mg PO DAILY albuterol sulfate [Ventolin HFA] 60 PUFFS/8 GM HFA aerosol inhaler 2 puff inhalation QID Spiriva Respimat 4 GM mist 4 g IH DAILY Diet: Regular Interventions: Belongings Inventory Last Done: 08/05/25 22:36 Discharge Last Done: 08/06/25 13:36 Discharge Checklist - Nursing Last Done: 08/06/25 13:38 Health Concerns: You came into the hospital because you fell and broke your wrist and were down for several hours. Your workup revealed that you had elevated CK level, indicating rhabdomyolysis. You were held overnight and received IV fluids to help with this. The CT of your wrist shows a mildly comminuted distal radial fracture and what appears to be an ulnar fracture. Your images were reviewed by the on-call orthopedic surgeon, who recommended placement of a splint and follow-up outpatient. I am sending you home with a short course of oxycodone. I would like for you to take Tylenol, which can be purchased [id number]. I want you to target 1 g of Tylenol 3 times a day. If this does not manage your pain, then you should use your oxycodone. Please follow-up with PCP as well as with orthopedics. We have a culture of your urine that is in process. If it grows anything I will call in an additional prescription for antibiotics Print Language: Citizen Of [place] Patient Instructions: Distal Radius Fx, ED Wrist Splint Stand Alone Forms: PCP List, SBIRT Follow-up Care: LIGIA DAMICO LOGISTICAL ENGINEER [Primary Care Provider, Nurse Practitioner] Vitals documented within 30 minutes of discharge?: Yes
[2025-08-06 14:41] VITALS: BP 138/96; TEMP 97.7; O2SAT 95
== END 2025-08-06 14:41 | disposition home or self-care (01) ==
LOC: ED 18:20 → MS2 18:20
PROVIDERS: ADMIT Physician Assistant Medical; ATTEND Physician Assistant Medical